=== PATIENT | female | born 1990 | race Caucasian/White ===

== ENCOUNTER 2018-06-25 05:04 | Day surgery (SDC) | payer BC, OTHER ==
[2018-06-24 12:25] VITALS: BMI 21.5
--- NOTE | 2018-06-24 15:23 | HP ---
HISTORY OF PRESENT ILLNESS PCP: Dr. Segovia ([facility]) Patient is a 27 year old female with no significant past medical history. She presents to [facility] today for a pre-op history and physical for a scheduled right foot bunionectomy with Dr. Felix on 06/25/2018. 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 Pain started 1 year ago and has been ongoing. Pain worsened 2 months ago hindering her ability to stand for long periods without foot pain. does not take any pain medications for foot pain. Patient denies any current medications other than Nexplanon ( control) ( left forearm). Denies using any blood thinners. She further denies any chest pain, shortness of breath or any malaise. Medical history: none reported Surgical history: 10 years ago, had endoscopy and colonscopy for abdominal pain and family history of colon cancer at young age. patient states the colonscopy and egd were negative (done at [facility]). Allergy: to Penicillin - gets hives Last menstrual period: June 2017, has vaginal spotting on and off 2/2 to Nexplanon patch ASU course was notable for: (1) well appearing, in no acute distress. denies chest pain, denies shortness of breath. (2) EKG not in chart, pt states has hx of heart murmur since childhood (3) 3 view xray of right foot to be done today Recent travel: [facility] in April 2018, stayed 4 days Family History: mother: 47 hypertension. Family history of colon cancer (aunt at age 30), Father: unknown hx, Social History: single, no children. sexually active with one partner. Smoking: none Alcohol: occasionally Drugs: none, denies REVIEW OF SYSTEMS CONSTITUTIONAL: Absent: fever, chills, diaphoresis, generalized weakness, malaise, loss of appetite, weight change HEENT: Absent: rhinorrhea, nasal congestion, throat pain, throat swelling, difficulty swallowing, mouth swelling, ear pain, eye pain, visual changes CARDIOVASCULAR: Absent: chest pain, syncope, palpitations, irregular heart rate, lightheadedness , peripheral edema RESPIRATORY: Absent: cough, shortness of breath, dyspnea with exertion, orthopnea, wheezing, stridor, hemoptysis GASTROINTESTINAL: Absent: abdominal pain, abdominal distension, nausea, vomiting, diarrhea, constipation, melena, hematochezia GENITOURINARY: Absent: dysuria, frequency, urgency, hesitancy, hematuria, flank pain, genital pain Absent: rash, itching, pallor HEMATOLOGIC/IMMUNOLOGIC: Absent: easy bleeding, easy bruising, lymphadenopathy, frequent infections ENDOCRINE: Absent: unexplained weight gain, unexplained weight loss, heat intolerance, cold intolerance NEUROLOGIC: Absent: headache, focal weakness or paresthesias, dizziness, unsteady gait, seizure, mental status changes, bladder or bowel incontinence PSYCHIATRIC: Absent: anxiety, depression, suicidal or homicidal ideation, hallucinations. PHYSICAL EXAMINATION: GENERAL: Awake, alert, and fully oriented, in no acute distress. HEAD: Normal with no signs of trauma. EYES: Pupils equal, round and reactive to light, extraocular movements intact, sclera anicteric, conjunctiva clear. No lid lag. EARS, NOSE, THROAT: Ears normal, nares patent, oropharynx clear without exudates. Moist mucous membranes. NECK: Normal range of motion, supple without lymphadenopathy, JVD, or masses. LUNGS: Breath sounds equal, clear to auscultation bilaterally. No wheezes, and no crackles. No accessory muscle use. HEART: Regular rate and rhythm, without murmur, rub or gallop. ABDOMEN: Soft, nontender, not distended, normoactive bowel sounds, no guarding, no rebound, no masses. No hepatomegaly or splenomegaly. UPPER EXTREMITIES: No clubbing. No peripheral edema. LOWER EXTREMITIES: bilateral foot bunions, right foot bunion with pain and redness at site. NEUROLOGICAL: . Normal speech. Normal gait. PSYCHIATRIC: Cooperative. Good eye contact. Appropriate mood and affect. SKIN: Warm, dry, normal turgor, no rashes or lesions noted, normal capillary refill. ASSESSMENT/PLAN: Patient is a 27 year old female with no significant past medical history. She presents to [facility] today for a pre-op history and physical for a scheduled right foot bunionectomy with Dr. Felix on 06/25/2018. Surgery: Surgical care post up per surgery team incentive spirometer wound care early ambulation pain management If EKG is required, please contact her PCP, Dr. Segovia. full code
[2018-06-25] MEDS ORDERED: BENZOIN TINCTURE SWABSTICK TP ONE (09:59)
[2018-06-25] MEDS ORDERED: DEXAMETHASONE SOD PHOSPHATE 4 MG/1 ML VIAL ONE (09:59)
[2018-06-25] MEDS ORDERED: LIDOCAINE HCL 1%, 10 MG/ML (20ML VIAL) ONE (09:59)
[2018-06-25] MEDS ORDERED: MIDAZOLAM HCL 2 MG/2 ML SINGLE DOSE VIAL ONE ×2 (11:25)
[2018-06-25] MEDS ORDERED: PROPOFOL 20 ML ONE ×2 (11:29)
[2018-06-25] MEDS ORDERED: LIDOCAINE HCL 1%, 10 MG/ML (20ML VIAL) PNB ONE (11:41)
[2018-06-25] MEDS ORDERED: BUPIVACAINE HCL/PF 0.5% (5MG/ML) 10 ML VIAL IJ ONE (11:41)
[2018-06-25] MEDS ORDERED: BUPIVACAINE HCL/PF 0.5% (5MG/ML) 10 ML VIAL PNB ONE (12:50)
[2018-06-25] MEDS ORDERED: DEXAMETHASONE SOD PHOSPHATE 4 MG/1 ML VIAL IM ONE (12:50)
--- NOTE | 2018-06-25 16:41 | OP ---
DATE OF OPERATION: 06/25/2018 PREOPERATIVE DIAGNOSIS: Right foot hallux valgus and right foot 2nd and 5th hammertoes. POSTOPERATIVE DIAGNOSIS: Right foot hallux valgus and right foot 2nd and 5th hammertoes. PROCEDURE PERFORMED: 1. Bunionectomy of the right foot. 2. Second toe arthroplasty, right foot. 3. Second toe exostectomy, right foot. 4. Fifth toe arthroplasty, right foot SURGEON: Cari Felix DPM PRINCIPAL PRODUCT MANAGER: Alexandria Marquez DPM, PGY-3; Hakeem Galvez DPM ANESTHESIA: Local with monitored anesthesia care. PATHOLOGY: Right foot bone and soft tissue. HEMOSTASIS: Pneumatic ankle tourniquet, right ankle, set to 250 mmHg and electrocautery. ESTIMATED BLOOD LOSS: 2 mL. MATERIALS USED: 1. Vicryl sutures, sizes 2-0, 3-0, 4-0 and 5-0. 2. Nylon suture, 4-0. 3. Benzoin and Steri-Strips. 4. Postoperative dressing such as Betadine-soaked Adaptic, 4 x 4's, sterile gauze, Kerlix and Garrick bandage. INJECTABLES: 1. A 1:1 mixture of 27 mL of 1% lidocaine plain and 0.5% Marcaine was injected preoperatively. 2. An 8:2 mixture of 10 mL of dexamethasone 4 mg and 0.5% Marcaine plain was injected postoperatively. CONDITION OF PATIENT: Stable. COMPLICATIONS: None. DESCRIPTION OF PROCEDURE: The patient was brought to the operating room and placed supine on the operating room table. A pneumatic ankle tourniquet was then placed on the patient's right ankle. Following IV sedation, local anesthesia was obtained utilizing a 1:1 mixture of 1% lidocaine plain and 0.5% Marcaine plain preoperatively. A total of 27 mL was injected at the surgical site. The right foot was then scrubbed, prepped and draped in the usual aseptic manner. An Esmarch bandage was then utilized to exsanguinate the patient's right foot and the tourniquet was inflated. Attention was first directed to the dorsal aspect of the 1st metatarsal head of the right foot, where a linear incision was made medial and parallel to the tendon of the extensor hallucis longus. The incision was then deepened through the subcutaneous tissue using sharp and blunt dissection. Care was taken to identify and retract all vital neural and vascular structures. All bleeders were ligated and cauterized as necessary. At this time, a linear capsulotomy was performed over the dorsal aspect of the 1st metatarsophalangeal joint. The periosteal and capsular structures were then carefully dissected medially and laterally, thus exposing the head of the 1st metatarsal. Attention was first directed to the medial aspect of the 1st metatarsal head. Using a sagittal saw, the medial prominence was resected and passed from the operative field. A dorsal osteophyte was also resected using a sagittal saw. At this time, the position of the great toe was assessed and the deformity appeared to have been reduced. At this time, the wound was irrigated with copious amounts of normal saline. All the capsular and subcutaneous structures were sutured using 2-0, 3-0 and 4-0 Vicryl sutures. Prior to closure, the capsulorrhaphy was done and a small wedge of capsule was removed from the operative field. The capsular and subcutaneous tissues were closed using 2-0, 3-0 and 4-0 Vicryl sutures. The skin was closed using 5-0 Vicryl suture. At this time, benzoin and Steri-Strips were applied to the skin across the incision site. Next, attention was turned to the right 2nd toe where a transverse incision was made over the distal interphalangeal joint where the deformity and pain were noted. A skin wedge was removed in a transverse manner at the distal interphalangeal joint and passed from the operative field. At this time, the extensor tendon was tenotomized at the distal interphalangeal joint and the head of the middle phalanx was exposed and from its ligamentous attachment. Using a sagittal saw, the head of the middle phalanx was resected, passed from the operative field and sent to Pathology. The wound was irrigated with copious amounts of normal saline. The extensor tendon was closed using 3-0 Vicryl suture. The skin was closed using 4-0 nylon suture in a simple suture fashion. At this time, a small, separate stab incision was made at the medial aspect of the distal phalanx, 2nd toe, right foot. Using a power jagruti, the exostosis which was noted medially was smoothed. The wound was irrigated with copious amounts of normal saline. The skin was closed using 4-0 nylon suture. Next, attention was turned to the right foot, 5th toe, where a curvilinear, semi-elliptical incision was made in an angular manner on the dorsal aspect of the 5th toe. The skin was removed from the operative field. At this time, the extensor tendon was tenotomized at the proximal interphalangeal joint and the head of the middle phalanx freed from its ligamentous attachment medially and laterally. Then, the head of the proximal phalanx was resected using the sagittal saw, passed from the operative field and sent to Pathology. Using a rongeur, all of the sharp edges were smoothed. The wound was then irrigated with copious amounts of normal saline. The toe deformity appeared to have been reduced with excellent alignment. The extensor tendon was then closed using 3-0 Vicryl suture. The skin was closed using 3-0 nylon suture. A postoperative injection containing 10 mL of an 8:2 mixture of 0.5% Marcaine and dexamethasone 4 mg was infiltrated throughout the surgical site. Postoperative dressings was applied, such as Betadine-soaked Adaptic, 4 x 4 sterile gauze, Kerlix and an Garrick bandage were applied to the right foot. The right ankle tourniquet was then deflated and immediate hyperemia was noted to all digits of the right foot. The patient tolerated the procedure and anesthesia well and was transferred to the post-anesthesia unit with vital signs stable and vascular status intact to the right lower extremity. The patient will be discharged home and has already been given instructions and prescriptions, which were discussed prior to surgery. WELLINGTON Gomes/[id number]
[2018-06-25 16:53] VITALS: BP 119/66; PULSE 69; TEMP 97.9
--- NOTE | 2018-06-29 16:07 | PATH ---
Surgical Pathology Report Patient Name: CARLITOS GUERRIER [facility]. Rec. #: [id number] /Age/Gender: 1990 (Age: 27) / F Account: [id number] Location: [facility] SUR[facility]ICAL Taken: 06/25/2018 Received: 06/25/2018 Reported: 06/29/2018 Physicians: Cari Felix DPM Specimen(s) Received BONE AND SOFT TISSUE 2,5 TOES AND BUNION AREA Clinical History Bunion right foot Final Diagnosis BONE AND SOFT TISSUE, RIGHT FOOT, EXCISION: BONE WITH REACTIVE CHANGES CONSISTENT WITH BUNION, AND BONE WITH ATTACHED ARTICULAR CARTILAGE CONSISTENT WITH HAMMERTOE. Electronically Signed Chuy Palafox M.D. Gross Description Received in formalin labeled "bone and soft tissue second and fifth bunion area," is a 2.4 x 2.0 x 0.3 cm aggregate of mcclain-yellow irregular portions of bone and soft tissue. Research Chemist sections are submitted in one cassette following decalcification. 06/28/2018 [facility] [place]06/28/2018
== END 2018-06-25 15:20 | disposition home or self-care (01) ==
LOC: JASU-SURG 05:04
PROVIDERS: ATTEND Podiatrist Foot Surgery
PROC: 0QBQ0ZZ Excision of Right Toe Phalanx, Open Approach (ICD-10-PCS; 2018-06-25)
PROC: 0QBQ0ZZ Excision of Right Toe Phalanx, Open Approach (ICD-10-PCS; 2018-06-25)
PROC: 0SRP0JZ Replacement of Right Toe Phalangeal Joint with Synthetic Substitute, Open Approach (ICD-10-PCS; principal; 2018-06-25 11:00)
DX: M21.611 Bunion of right foot (principal); M20.41 Other hammer toe(s) (acquired), right foot
CPT/HCPCS: 73630-TC-RT-FY; 84703; 88304-TC; 88311-TC; 94760

== ENCOUNTER 2018-07-30 09:46 | Day surgery (SDC) | payer BC, OTHER ==
[2018-07-14 18:05] VITALS: BMI 21.5
[2018-07-30] MEDS ORDERED: DEXAMETHASONE SOD PHOSPHATE 4 MG/1 ML VIAL ONE ×2 (10:09→11:37)
[2018-07-30] MEDS ORDERED: LIDOCAINE HCL 1%, 10 MG/ML (20ML VIAL) ONE (10:09)
[2018-07-30] MEDS ORDERED: LIDOCAINE HCL 0.5%, 5 MG/ML (50mL SDVIAL) ONE (10:09)
[2018-07-30] MEDS ORDERED: MIDAZOLAM HCL 2 MG/2 ML SINGLE DOSE VIAL ONE (11:25)
[2018-07-30] MEDS ORDERED: ceFAZolin SODIUM 1 GM VIAL IVPB ONE (11:37)
[2018-07-30] MEDS ORDERED: ceFAZolin SODIUM 1 GM VIAL ONE (11:38)
[2018-07-30] MEDS ORDERED: PROPOFOL 20 ML ONE ×3 (11:40→12:20)
[2018-07-30] MEDS ORDERED: LIDOCAINE HCL/PF 2% SDV 5ML VIAL ONE (11:41)
[2018-07-30] MEDS ORDERED: BUPIVACAINE HCL/PF 0.5% (5MG/ML) 10 ML VIAL IJ ONE (12:36)
[2018-07-30] MEDS ORDERED: LIDOCAINE HCL 1%, 10 MG/ML (20ML VIAL) INF ONE (12:36)
[2018-07-30] MEDS ORDERED: DEXAMETHASONE SOD PHOSPHATE 4 MG/1 ML VIAL NR ONE (12:37)
[2018-07-30] MEDS ORDERED: BENZOIN TINCTURE SWABSTICK TP ONE (12:39)
[2018-07-30] MEDS ORDERED: oxyCODONE HCL 5 MG TABLET PO PRN (12:57)
[2018-07-30] MEDS ORDERED: ONDANSETRON 4 MG/2 ML VIAL IVPUSH PRN (12:57)
[2018-07-30] MEDS ORDERED: LACTATED RINGERS SOLUTION 1,000 ML IV SCH (13:00)
[2018-07-30 15:34] VITALS: BP 127/75; PULSE 89; TEMP 97.9
--- NOTE | 2018-08-02 09:57 | PATH ---
Surgical Pathology Report Patient Name: CARLITOS GUERRIER Med. Rec. #: [id number] /Age/Gender: 1990 (Age: 27) / F Account: [id number] Location: [facility] Taken: 07/30/2018 Received: 07/30/2018 Reported: 08/02/2018 Physicians: Cari Felix DPM Specimen(s) Received BONE/TISSUE LEFT FOOT BUNION, 2ND AND 5TH DIGIT Clinical History Left foot bunion, second and fifth left foot hammer toe, bone spur left foot second toe Final Diagnosis FOOT, LEFT, BONE/TISSUE, SECOND AND FIFTH DIGIT, BUNIONECTOMY WITH EXCISION OF BONE SPUR SECOND TOE, HAMMERTOE CORRECTION SECOND/FIFTH DIGIT: BONE WITH DEGENERATIVE CHANGES, UNREMARKABLE SKIN, AND DENSE FIBROCONNECTIVE TISSUE. Electronically Signed Glory Alston M.D. Gross Description Received in formalin labeled "bone/tissue left foot bunion second fifth digit," is a 3.0 x 2.3 x 0.4 cm aggregate of multiple mcclain, irregular portions of bone, skin and soft tissue. Soaping Machine Back Tender sections are submitted in one cassette, following decalcification. /07/30/2018 [place]07/30/2018
--- NOTE | 2018-08-02 12:56 | OP ---
DATE OF OPERATION: 07/30/2018 SURGEON: Cari Felix DPM SWING RIDE OPERATOR: Hakeem Galvez DPM and Alexandria Chavez, PGY-3 PREOPERATIVE DIAGNOSIS: 1. Left foot bunion. 2. Left foot 2nd hammer toe. 3. Left foot 5th hammer toe. POSTOPERATIVE DIAGNOSIS: 1. Left foot bunion. 2. Left foot 2nd hammer toe. 3. Left foot 5th hammer toe. PROCEDURES: 1. Left foot bunionectomy. 2. Second toe arthroplasty, left foot. 3. Fifth toe arthroplasty, left foot. 4. Left foot middle phalanx 2nd toe exostectomy. ANESTHESIA: Local with MAC. PATHOLOGY: Bone. ESTIMATED BLOOD LOSS: Less than 2 mL. HEMOSTASIS: Left ankle tourniquet 250 mmHg and electrocautery. MATERIALS USED: A 2-0, 3-0, 4-0 Vicryl suture and postoperative dressing such as Betadine-soaked Adaptic, 4 x 4's, sterile gauze, Kerlix, and Garrick bandage. INJECTABLES: Used 20 mL of 1:1 mixture of 1% lidocaine plain and 0.5% Marcaine plain used preoperatively and 10 mL of 0.5% Marcaine plain used postoperatively with 1 mL of dexamethasone 4 mg. CONDITION: Stable. COMPLICATIONS: None. DESCRIPTION OF PROCEDURE: The patient was brought into the operating room and placed onto the operating room table in a supine position. A pneumatic ankle tourniquet was then placed on the patient's left ankle. Following IV sedation, local anesthesia was obtained using a 1:1 mixture of 1% lidocaine plain and 0.5% Marcaine plain. Preoperatively, 20 mL total was injected throughout the surgical site. The left foot was then scrubbed, prepped, and draped in the usual aseptic manner. An Esmarch bandage was then utilized to exsanguinate the patient's left foot, and the tourniquet was inflated. Attention was first directed to the dorsal aspect of the 1st metatarsal head of the left foot where a linear incision was made medial and parallel to the tendon of extensor hallucis longus. The incision was then deepened through the subcutaneous tissues utilizing sharp and blunt dissection. Care was taken to identify all vital neural and vascular structures. All bleeders were then ligated and cauterized as necessary. At this time, a linear capsulotomy was then performed over the dorsal aspect of the 1st metatarsophalangeal joint left foot. The periosteal and capsular structures were then carefully dissected medially and laterally thus exposing the head of the 1st metatarsal. Attention was directed to the medial aspect of the 1st metatarsal head. Using a sagittal saw, the medial prominence was then resected and passed from the operative field. At this time, the position of the great toe was access, and the enlarged medial eminence was gone, and the toe appeared to be straight with no medial eminence. All the sharp edges were then smoothed using a power bur. The wound was irrigated with a copious amount of normal saline with bacitracin in it. All of the capsular and subcutaneous tissues were closed using 2-0, 3-0, and 4-0 Vicryl sutures. Benzoin applied to the skin across the incision site with Steri-Strips. Next, attention was brought to the 2nd toe. Using No. 15 blade, a semielliptical incision was applied to the dorsal aspect of the proximal interphalangeal joint. The incision was then deepened through the subcutaneous tissue with care being taken to identify and retract all vital neural and vascular structures. At this time, a transverse tenotomy and capsulotomy were performed to the proximal interphalangeal joint of the 2nd digit left foot. There, the proximal phalanx was then freed from its capsular and ligamentous attachments. Using the bone saw, the head of the proximal phalanx was then resected and passed from the operative field. Correction of the deformity was assessed at this time and noted to be fully reduced. The incision of the 2nd digit was then flushed with a copious amount of normal saline, and the extensor tendon was then reapproximated utilizing 3-0 Vicryl suture, and the skin was closed using 4-0 nylon suture in a simple suture fashion. At this time, using a No. 15, a separate incision was made on the medial aspect of the head of the middle phalanx where the dorsal exostosis existed. Using a power bur, the dorsomedial prominence of the middle phalanx was smoothed. The wound was irrigated with a copious amount of normal saline, and skin was closed using 4-0 nylon suture. Next, attention was brought to the 5th digit of the left foot where a semielliptical longitudinal incision was made in an angulated manner in the dorsal aspect of the 5th toe proximal interphalangeal joint. The incision was then deepened through the subcutaneous tissue with care being taken to identify and retract all vital neural and vascular structures. At this time, a transverse tenotomy and capsulotomy was then performed to the proximal interphalangeal joint of the 5th toe left foot. The head of the proximal phalanx was then freed from its capsular and ligamentous attachments. Utilizing the bone saw, the head of the proximal phalanx was then resected and passed from the operative field. Correction of the deformity was assessed at this time and noted to be fully reduced. The incision site at that flushed with copious amount of normal saline. The extensor tendon was then reapproximated utilizing 3-0 Vicryl suture, and the skin was closed using 4-0 nylon suture in a simple suture fashion. Upon completion of the procedure, 10 mL of 0.5% Marcaine plain with 1 mL of dexamethasone 4 mg was infiltrated throughout the surgical site. The incision sites were covered with Betadine-soaked Adaptic and sterile compressive dressing consisting of 4 x 4 sterile gauze, Kerlix, and Garrick bandage. The pneumatic ankle tourniquet was deflated, and immediate hyperemia was noted to all of the digits of the left foot. The patient tolerated the procedure and anesthesia well and was transferred to the post anesthesia care unit with vital signs stable and vascular status intact to the left lower extremity. The patient will be discharged home with family and was already given instructions, prescriptions, surgical shoe, and a date to follow up. Alexandria Chavez, PGY-3 dictating for WELLINGTON Gomes DPM BS/[id number]
== END 2018-07-30 15:25 | disposition home or self-care (01) ==
LOC: JASU-SURG 09:46
PROVIDERS: ATTEND Podiatrist Foot Surgery
PROC: 0SRQ0JZ Replacement of Left Toe Phalangeal Joint with Synthetic Substitute, Open Approach (ICD-10-PCS; principal; 2018-07-30 10:00)
PROC: 0QBR0ZZ Excision of Left Toe Phalanx, Open Approach (ICD-10-PCS; 2018-07-30 10:00)
DX: M21.612 Bunion of left foot (principal); M20.42 Other hammer toe(s) (acquired), left foot; M89.9 Disorder of bone, unspecified
CPT/HCPCS: 73630-TC-LT; 84703; 88305-TC; 88311-TC; 94760